=== PATIENT | male | born 1965 | race Caucasian/White ===

== ENCOUNTER 2024-12-06 06:21 | Day surgery (SDC) | payer OTHER, SELFPAY ==
[2024-12-06 07:10] LABS: Glucose - Point of Care 185 mg/dl (70-99)
== END 2024-12-06 08:40 | disposition home or self-care (01) ==
LOC: GI 06:21
PROVIDERS: ATTENDING PHYSICIAN Internal Medicine Gastroenterology
DX: Z12.11 Encounter for screening for malignant neoplasm of colon (principal); D12.0 Benign neoplasm of cecum; D12.2 Benign neoplasm of ascending colon; D12.3 Benign neoplasm of transverse colon; D12.4 Benign neoplasm of descending colon; D12.5 Benign neoplasm of sigmoid colon; K57.30 Diverticulosis of large intestine without perforation or abscess without bleeding; K64.0 First degree hemorrhoids; Z86.0100 Personal history of colon polyps, unspecified
CPT/HCPCS: 45385; 45380; 88305; 82962